=== PATIENT | female | born 1945 | race Asian ===

== ENCOUNTER 2018-06-05 13:04 | Emergency (ER) | payer MEDICARE, OTHER ==
[2018-06-05] MEDS: ACETAMINOPHEN 500 MG TAB PO (15:09)
== END 2018-06-05 16:29 | disposition home or self-care (01) ==
LOC: FTE 13:04
DX: S09.90XA Unspecified injury of head, initial encounter (principal); S69.91XA Unspecified injury of right wrist, hand and finger(s), initial encounter; G44.319 Acute post-traumatic headache, not intractable; I10 Essential (primary) hypertension; E11.9 Type 2 diabetes mellitus without complications; W08.XXXA Fall from other furniture, initial encounter; Y92.9 Unspecified place or not applicable
CPT/HCPCS: 70450; 73130-RT; 99284-25